=== PATIENT | male | born 1955 | race Caucasian/White ===

== ENCOUNTER 2017-02-25 13:41 | Emergency (ER) | payer SELFPAY ==
[~2017-02-25] VITALS: Ht 175.3 cm; Wt 67.0 kg
[~2017-02-25 13:41] MED LIST: ATOR20TA42 PO; DEXI60CA3 PO
[2017-02-25 13:50] VITALS: BP 117/75; PULSE 99; RESP 16; TEMP 97.4; O2SAT 99
[2017-02-25] MEDS ORDERED: LEVO.05 PO (14:01)
[2017-02-25] MEDS ORDERED: LIPI20TA PO (14:01)
[2017-02-25] MEDS ORDERED: PLAV75TA29 PO (14:01)
[2017-02-25] MEDS ORDERED: OMEP20TA PO (14:01)
--- NOTE | 2017-02-25 14:17 | PD ---
HPI Chief Complaint: Nosebleed Time Seen by Provider: 14:15 Travel History International Travel<30 days: No Contact w/Intl Traveler<30days: No Traveled to known affect area: No History of Present Illness HPI 61-year-old male patient presents to the ER today, is on Plavix, and started having bleeding from his right nostril today. He denies any other issues. He states that he has had a previous nosebleed since he had been started on Plavix. Modifying Factors: None Associated Signs & Symptoms: Epistaxis Risk Factors: On Plavix PFSH Past Medical History Depression: Yes Cancer: Yes (LUNG REMISSION) Cardiovascular Problems: No High Cholesterol: Yes Chemotherapy: Yes (2008- X 1 ROUND) Diabetes: No Endocrine: No GERD: Yes Glaucoma: No Genitourinary: No Hepatitis: No Hiatal Hernia: No Hypertension: No Immune Disorder: No Implanted Vascular Access Dvce: Yes (PORT REMOVED) Musculoskeletal: No Neurologic: Yes Psychiatric: Yes Reproductive: No Respiratory: Yes (LUNG CANCER ) Immunizations Current: Yes Radiation Therapy: Yes (2008- X 2 ROUNDS) Thyroid Disease: Yes Tetanus Vaccination: > 5 Years Influenza Vaccination: Yes Past Surgical History Body Medical Devices: INFUSAPORT Cardiac Surgery: Yes (VALVE REPLACEMENT) Oral Surgery: Yes (BRONCHOSCOPY POLYP REMOVAL) Thoracic Surgery: Yes (THORACOTOMY 2009) Other Surgery: Yes (RIGHT THORACOTOMY,RIGHT LOBECTOMY PLEURECTOMY, BRONC) Social History Alcohol Use: No Tobacco Use: No (5 CIGS A DAY) Substance Use: No Allergies-Medications (Allergen,Severity, Reaction): Coded Allergies: No Known Allergies (Verified , 02/25/17) Reported Meds & Prescriptions Reported Meds & Active Scripts Active Reported Omeprazole 20 Mg Tab 20 Mg PO DAILY Lipitor (Atorvastatin Calcium) 20 Mg Tab 20 Mg PO HS Synthroid (Levothyroxine Sodium) 50 Mcg Tab 50 Mcg PO DAILY Plavix (Clopidogrel Bisulfate) 75 Mg Tab 75 Mg PO DAILY Review of Systems Except as stated in HPI: all other systems reviewed are Neg Physical Exam Narrative GENERAL: Well-developed elderly white male patient currently in mild distress. Awake and oriented 3. SKIN: Focused skin assessment warm/dry. HEAD: Atraumatic. Normocephalic. EYES: Pupils equal and round. No scleral icterus. No injection or drainage. ENT: No nasal bleeding or discharge. Mucous membranes pink and moist. There is notable right nostril small amount of blood with no obvious active bleeding. NECK: Trachea midline. No JVD. CARDIOVASCULAR: Regular rate and rhythm. No murmur appreciated. RESPIRATORY: No accessory muscle use. Clear to auscultation. Breath sounds equal bilaterally. GASTROINTESTINAL: Abdomen soft, non-tender, nondistended. Hepatic and splenic margins not palpable. MUSCULOSKELETAL: No obvious deformities. No clubbing. No cyanosis. No edema. NEUROLOGICAL: Awake and alert. No obvious cranial nerve deficits. Motor grossly within normal limits. Normal speech. PSYCHIATRIC: Appropriate mood and affect; insight and judgment normal. Data Data Last Documented VS Vital Signs Date Time Temp Pulse Resp B/P (MAP) Pulse Ox O2 Delivery O2 Flow Rate FiO2 02/25/17 13:50 97.4 99 16 117/75 (89) 99 MDM Medical Decision Making Medical Screen Exam Complete: Yes Emergency Medical Condition: Yes Medical Record Reviewed: Yes Differential Diagnosis Epistaxis Narrative Course At this point, the bleeding has stopped. Vital signs are stable. And I have talked to the patient regarding obtaining a Rhino Rocket so that the bleeding does not continue further. He discussed the issue with his and at this time is declining stating that he will come back should he start bleeding again. Return for any worsening in bleeding or new issues as needed. The plan has discussed with him and he states understanding. Diagnosis Primary Impression: Epistaxis Disposition: 01 DISCHARGE HOME Condition: Stable Gary Reddy MD Feb 25, 2017 14:17
== END 2017-02-25 14:41 | disposition home or self-care (01) ==
LOC: PHED 13:41
DX: R04.0 Epistaxis (principal); E07.9 Disorder of thyroid, unspecified; E78.00 Pure hypercholesterolemia, unspecified; Z79.01 Long term (current) use of anticoagulants; Z86.59 Personal history of other mental and behavioral disorders; Z85.118 Personal history of other malignant neoplasm of bronchus and lung; Z87.19 Personal history of other diseases of the digestive system; Z86.69 Personal history of other diseases of the nervous system and sense organs
CPT/HCPCS: 99281

== ENCOUNTER 2017-06-27 20:21 | Emergency (ER) | payer OTHER ==
[~2017-06-27 20:21] MED LIST changes: -ATOR20TA42 PO; -DEXI60CA3 PO; +LEVO.05 PO; +LIPI20TA PO; +OMEP20TA93 PO; +PLAV75TA29 PO
[2017-06-27 20:38] VITALS: BP 112/61; PULSE 94; RESP 20; TEMP 97.9; O2SAT 100
[2017-06-27] MEDS ORDERED: ASPI-516 CHEW (21:11)
--- NOTE | 2017-06-27 22:06 | PD ---
HPI Chief Complaint: Musculoskeletal Complaint Time Seen by Provider: 21:57 Travel History International Travel<30 days: No Contact w/Intl Traveler<30days: No Traveled to known affect area: No History of Present Illness HPI Patient 61-year-old male presents emergency department for evaluation of lower extremity wound and pain. Patient states that he dropped something on his leg at work several weeks ago, he states since then the pain started radiating up his right leg, states he has not noticed any swelling but he does have a history of cancer as well as a valve replacement and has not tolerated Coumadin in the past and therefore is on aspirin. He went and care facility today seeking pain treatment and was referred to the emergency department to rule out DVT as fracture. Patient states the pain is gradually worsened over the past few days, context as above, denies any shortness of breath difficulty ambulating. Tetanus status unknown. PFSH Past Medical History Hx Anticoagulant Therapy: Yes (VALVE REPLACEMNET TWO MONTHS AGO , WAS ON COUMADIN BRIEFLY ) Depression: Yes Cancer: Yes (LUNG REMISSION) Cardiovascular Problems: No High Cholesterol: Yes Chemotherapy: Yes (2008- X 1 ROUND) Diabetes: No Endocrine: No GERD: Yes Glaucoma: No Genitourinary: No Hepatitis: No Hiatal Hernia: No Hypertension: No Immune Disorder: No Implanted Vascular Access Dvce: Yes (PORT REMOVED) Musculoskeletal: No Neurologic: Yes Psychiatric: Yes Reproductive: No Respiratory: Yes (LUNG CANCER ) Immunizations Current: Yes Radiation Therapy: Yes (2008- X 2 ROUNDS) Thyroid Disease: Yes Tetanus Vaccination: Unknown Influenza Vaccination: Yes Past Surgical History Body Medical Devices: INFUSAPORT Cardiac Surgery: Yes (VALVE REPLACEMENT) Oral Surgery: Yes (BRONCHOSCOPY POLYP REMOVAL) Thoracic Surgery: Yes (THORACOTOMY 2009) Other Surgery: Yes (RIGHT THORACOTOMY,RIGHT LOBECTOMY PLEURECTOMY, BRONC) Social History Alcohol Use: No Tobacco Use: No (5 CIGS A DAY) Substance Use: No Allergies-Medications (Allergen,Severity, Reaction): Coded Allergies: No Known Allergies (Verified Adverse Reaction, Unknown, 06/27/17) Reported Meds & Prescriptions Reported Meds & Active Scripts Active Ultram (Tramadol HCl) 50 Mg Tab 50 Mg PO Q6H PRN Reported Aspirin 81 Mg Chew 81 Mg CHEW ONCE Omeprazole 20 Mg Tab 20 Mg PO DAILY Lipitor (Atorvastatin Calcium) 20 Mg Tab 20 Mg PO HS Synthroid (Levothyroxine Sodium) 50 Mcg Tab 50 Mcg PO DAILY Review of Systems Except as stated in HPI: all other systems reviewed are Neg Physical Exam Narrative GENERAL: Well-developed well-nourished no obvious distress SKIN: Focused skin assessment warm/dry. There is small abrasion over the anterior tibia on the right lower extremity, no swelling appreciated, no bleeding. HEAD: Atraumatic. Normocephalic. EYES: Pupils equal and round. No scleral icterus. No injection or drainage. ENT: No nasal bleeding or discharge. Mucous membranes pink and moist. NECK: Trachea midline. No JVD. CARDIOVASCULAR: Regular rate and rhythm. No murmur appreciated. RESPIRATORY: No accessory muscle use. Clear to auscultation. Breath sounds equal bilaterally. GASTROINTESTINAL: Abdomen soft, non-tender, nondistended. Hepatic and splenic margins not palpable. MUSCULOSKELETAL: No obvious deformities. No clubbing. No cyanosis. No edema. 2+ bilateral equal pulses in all 4 extremities, no edema, Homans sign negative, patient states the pain radiates all the way up his thigh no cordlike structures palpated. Full nontender range of motion of all joints of the lower extremities. 5 out of 5 strength equal bilaterally. NEUROLOGICAL: Awake and alert. No obvious cranial nerve deficits. Motor grossly within normal limits. Normal speech. PSYCHIATRIC: Appropriate mood and affect; insight and judgment normal. Data Data Last Documented VS Orders Orders Us Leg Venous Doppler (06/27/17 22:06) Tibia/Fibula (Ap/Lat) (06/27/17 ) Tetanus/Diphtheria Tox Adult (Tetanus/Di (06/28/17 01:00) Ed Discharge Order (06/28/17 01:00) [facility] Medical Decision Making Medical Screen Exam Complete: Yes Emergency Medical Condition: Yes Differential Diagnosis DVT, fracture, radiculopathy, neurogenic pain. Narrative Course Last 24 hours Impressions Lower Extremity Ultrasound 06/27/17 2206 Signed Impressions: Service Date/Time: June 23:50 - CONCLUSION: No evidence of right lower extremity DVT. Blaze Flores MD Tibia/Fibula X-Ray 06/27/17 0000 Signed Impressions: Service Date/Time: June 22:30 - CONCLUSION: No acute disease. Jeromy Francois MD Patient reassured, tetanus status updated, discussed pain management as well as need for follow-up the primary care physician for workup of possible radiculopathy. Nerve is no midline CT or L-spine tendernes and therefore no indication further workup at this time. He stable for discharge discussed return to ED criteria. Diagnosis Primary Impression: Radiculopathy Qualified Codes: M54.10 - Radiculopathy, site unspecified Med/Other Pt SpecificInfo: Prescription(s) given Scripts Tramadol (Ultram) 50 Mg Tab 50 MG PO Q6H Y for PAIN, #15 TAB 0 Refills Prov: Tawanda Flores MD 06/28/17 Disposition: DISCHARGE HOME Condition: Stable Tawanda Flores MD Jun 27, 2017 22:06
--- NOTE | 2017-06-27 22:43 | RADRPT ---
EXAM DATE/TIME: 06/27/2017 22:30 [facility] COMPARISON: No previous studies available for comparison. INDICATIONS : Hit in distal tibia with an angle plate at work a week ago. Pain started to radiate up medial leg int o groin area. MEDICAL HISTORY : None. SURGICAL HISTORY : None. ENCOUNTER: Initial ACUITY: 1 week PAIN SCORE: 7/10 LOCATION: Right Distal Tibia FINDINGS: Two view examination of the right tibia demonstrates no evidence of fracture or dislocation. Bony mi neralization is normal. The soft tissue structures are intact. CONCLUSION: No acute disease. Jeromy Francois MD on June 27, 2017 at 22:41 Board Certified Radiologist. This report was verified electronically.
[2017-06-28 00:05] VITALS: BP 105/71; PULSE 81; RESP 16; O2SAT 98
--- NOTE | 2017-06-28 00:36 | RADRPT ---
EXAM DATE/TIME: 06/27/2017 23:50 [facility] COMPARISON: No previous studies available for comparison. INDICATIONS : Right leg pain. MEDICAL HISTORY : Carcinoma, lung. Hypercholesterolemia. Thyroid disease. Numbness, feet. GERD. Depression. Tobacco use. Anticoagulant therapy, Aspirin 81mg. SURGICAL HISTORY : Bronchoscopy polyp removal. Cardiac valve replacement. Right thoracotomy. Right lobectomy pleurectom y. ENCOUNTER: Initial ACUITY: 2 weeks PAIN SCORE: 3/10 LOCATION: Right leg. TECHNIQUE: Venous ultrasound of the leg was performed from the inguinal ligament to the proximal calf. Real-elmira e, color Doppler and spectral tracing, compression and augmentation techniques were used. FINDINGS: There is normal compressibility of the deep venous system from the inguinal region to the proximal ca lf. No echogenic clot is seen in the lumen of the common femoral, femoral, popliteal, and posterior tibial veins. There is a normal response of the venous system to proximal and distal augmentation an d respiration. CONCLUSION: No evidence of right lower extremity DVT. Blaze Flores MD on June 28, 2017 at 0:34 Board Certified Radiologist. This report was verified electronically.
[2017-06-28] MEDS ORDERED: PRED20 PO (00:43)
[2017-06-28] MEDS ORDERED: TETANUS/DIPHTHERIA TOXOID ADULT 0.5 ML VIAL IM ONE (01:00)
[2017-06-28] MEDS ORDERED: TRAM50 PO (01:00)
== END 2017-06-28 01:18 | disposition home or self-care (01) ==
LOC: PHED 20:21
DX: M54.10 Radiculopathy, site unspecified (principal); E78.00 Pure hypercholesterolemia, unspecified; K21.9 Gastro-esophageal reflux disease without esophagitis; E07.9 Disorder of thyroid, unspecified; F32.9 Major depressive disorder, single episode, unspecified; F17.210 Nicotine dependence, cigarettes, uncomplicated; Z85.118 Personal history of other malignant neoplasm of bronchus and lung; Z23 Encounter for immunization; Z79.82 Long term (current) use of aspirin
CPT/HCPCS: 73590; 90471; 90714; 93971